=== PATIENT | male | born 1975 | race Caucasian/White ===

== ENCOUNTER → 2016-08-18 | Outpatient (CLI) | payer OTHER ==
--- NOTE | 2016-08-18 13:05 | DI ---
MRI LUMBAR SPINE SCAN WITHOUT IV CONTRAST, 08/18/2016 10:05 AM: Clinical History: Acute bilateral low back pain with left sciatica. Previous Exam: 05/07/2015. Technique: Sagittal and axial T2 weighted; sagittal T1 weighted and T2 STIR; and axial PD. The vertebral bodies are of normal height and size. Since the previous exam, the patient has had a le ft L4 hemilaminectomy with apparent placement of a metallic implant between the spinous processes of L4 and L5. There are considerable artifacts generated by this metallic density. The cord terminates a t T12 and the conus medullaris is normal. The disc spaces from T10-11 through T12-L1 are normal. L1-2 has a mild circumferentially bulging but not herniated disc without canal or neural foraminal stenos is. L2-3 and L3-4 disc spaces are normal. L4-5 has considerable artifacts visible within the canal an d it is difficult to determine if there has been a recurrent disc herniation. On some sequences, the artifacts are actually visible within the canal and the possibility of the presence of small metallic fragments either contiguous or within the canal cannot be excluded. There is no canal or neural fora noam stenosis at this level. L5-S1 has an anterior extradural hypointense structure just to the left of midline that is consistent with an extruded disc from the L5-S1 level. This material potentially could cause impingement on the left S1 nerve root before it enters into the left lateral recess of S1 . There is no canal or neural foraminal stenosis. Readin. The patient is status post left L4 hemilaminectomy with placement of metallic hardware between th e spinous processes of L4 and L5. There is extensive artifact generated by the metallic hardware so t hat evaluation of the canal is suboptimal. There is no canal or neural foraminal stenosis, but evalua tion for recurrent disc herniation or even scar tissue formation is not possible. A postcontrast MRI scan may be helpful for delineation of scar tissue although the likelihood of a successful study is m arkedly decreased because of the metallic artifacts. 2. There is an anterior left-sided extradural defect consistent with migration of disc material infe riorly from L5-S1 silhouetted potentially can produce impingement of the left S1 nerve root before it enters into the left lateral recess of S1. Evaluation of both of these levels can be performed with a CT myelogram if the patient's symptoms do not improve. 3. There is a bulging but not herniated disc without canal or neural foraminal stenosis at L1-2. 4. The disc spaces from T10-11 through T12-L1 and at L2-3 and L3-4 are normal.
== END ==
LOC: MRI 09:58
PROVIDERS: ATTEND Physician Assistant
DX: M54.42 Lumbago with sciatica, left side (principal); M47.816 Spondylosis without myelopathy or radiculopathy, lumbar region
CPT/HCPCS: 72148

== ENCOUNTER → 2016-08-25 | Outpatient (CLI) | payer OTHER ==
--- NOTE | 2016-08-27 09:25 | EKG ---
[address] [place] [address] Measurements Intervals [place] Rate: 74 P: 54 MO: 155 QRS: 17 QRSD: 94 T: 2 QT: 398 QTc: 426 Interpretive Statements SINUS RHYTHM NONSPECIFIC T-WAVE ABNORMALITY but concerning for possible anterolateral ischemia (especially with subtle ST flatteing also inferiorly) No previous ECG available for comparison Electronically Signed On 08-27-16 15:12:03 MST by Chris Coleman MD [email or web address]
== END ==
LOC: EKG 16:50
PROVIDERS: ATTEND Family Medicine
DX: Z01.810 Encounter for preprocedural cardiovascular examination (principal); M54.5 Low back pain; F17.220 Nicotine dependence, chewing tobacco, uncomplicated
CPT/HCPCS: 93005; 93010

== ENCOUNTER → 2016-08-26 | Outpatient (CLI) | payer OTHER ==
[2016-08-26 10:09] LABS: HEMATOCRIT 43.6 % (42.0-52.0); HEMOGLOBIN 14.9 g/dL (14.0-18.0); MEAN CORPUSCULAR HEMOGLOBIN 33.9 PG (27-31); MEAN CORPUSCULAR HGB CONC 34.2 g/dL (33-37); MEAN PLATELET VOLUME 9.3 FL (7.4-12.2); RDW COEFFICIENT OF VARIATION 13.4 % (11.5-14.5); RED BLOOD COUNT 4.39 10^6/uL (4.70-6.10); WHITE BLOOD COUNT 3.06 10^3/uL (4.8-10.8)
[2016-08-26 10:10] LABS: BILIRUBIN,URINE NEGATIVE (NEG); CLARITY,URINE CLEAR (CLEAR); GLUCOSE, URINE (UA) NEGATIVE (NEG); LEUKOCYTE ESTERASE ,URINE NEGATIVE (NEG); NITRATE,URINE NEGATIVE (NEG); OCCULT BLOOD,URINE NEGATIVE (NEG); PROTEIN,URINE NEGATIVE (NEG); UROBILINOGEN,URINE 0.2 mg/dL (0.2)
[2016-08-26 10:16] LABS: BACTERIA,URINE RARE; URINE SAMPLE TYPE CLEAN CATCH URINE; WBC,URINE 0-3
[2016-08-26 10:30] LABS: PROTHROMBIN TIME 10.7 secs (9.7-11.4)
[2016-08-26 11:11] LABS: BLOOD UREA NITROGEN 12 mg/dL (7-22); BUN/CREATININE RATIO 17.14 (6-20); CHLORIDE 98 meq/L (98-112); CREATININE 0.7 mg/dL (0.70-1.50); EST GLOMERULAR FILTRATION > 60 (>60 ml/min/1.73m(2)); GLUCOSE 86 mg/dL (78-110); POTASSIUM 4.2 meq/L (3.8-5.2); SODIUM 138 meq/L (135-145)
--- NOTE | 2016-08-26 12:05 | DI ---
PA /LATERAL CHEST X-RAY, 08/26/2016 9:56 AM : Clinical History: Tobacco use. Preoperative clearance exam. Previous Exam: None at this facility. There is no acute soft tissue or bony abnormality. Heart size is normal. Lungs are clear. Mediastinal structures are normal. There are no pulmonary nodules. Reading: Normal chest x-ray.
== END ==
LOC: MOB RAD 08:39
PROVIDERS: ATTEND Family Medicine
DX: Z01.812 Encounter for preprocedural laboratory examination (principal); Z01.818 Encounter for other preprocedural examination; M54.5 Low back pain; F17.220 Nicotine dependence, chewing tobacco, uncomplicated
CPT/HCPCS: 36415; 71020; 80048; 81001; 85027; 85610

== ENCOUNTER → 2016-10-08 | Outpatient (CLI) | payer OTHER ==
[2016-10-08 15:14] LABS: HEMATOCRIT 44.7 % (42.0-52.0); HEMOGLOBIN 14.6 g/dL (14.0-18.0); MEAN CORPUSCULAR HEMOGLOBIN 32.9 PG (27-31); MEAN CORPUSCULAR HGB CONC 32.7 g/dL (33-37); MEAN PLATELET VOLUME 9.4 FL (7.4-12.2); RED BLOOD COUNT 4.44 10^6/uL (4.70-6.10)
== END ==
LOC: LAB 15:01
PROVIDERS: ATTEND Neurological Surgery
DX: R22.42 Localized swelling, mass and lump, left lower limb (principal); Z48.811 Encounter for surgical aftercare following surgery on the nervous system
CPT/HCPCS: 36415; 85027; 85652; 86140

== ENCOUNTER 2016-10-22 12:08 | Emergency (ER) | payer OTHER ==
--- NOTE | 2016-10-22 12:19 | PDOC ---
Gen Adult / Medical Screen HPI - General Chief Complaint: Clear for Confinement/DUI Draw Stated Complaint: medical clearance Date Seen by Provider: 10/22/16 Time Seen by Provider: 12:14 Source: POSITIVE: Patient, Police Exam Limitations: POSITIVE: No limitations Nurse's Notes Reviewed & Considered: Yes - Indicators Temperature Between 95 and 101 Degrees: Yes Respirations Between 12 and 20: Yes Blood Pressure Between 100-165 (sys) and 60-100 (barrett): Yes Pulse Range Between 60-105 (100 for age > 60 years): Yes Severe Pain (Greater than 5/10 Reported): Yes (chronic lower back pain radiating to his left leg) Chest or Abdominal Pain: No Inability to Walk: No Pt Reports Active High Risk Cond. (TB/Hepatitis/HIV/Chemo): No Abnormal Mental Status: No - History of Present Illness Initial Comments: This 41-year-old male is brought in by the Police Department for clearance for correction. 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 He admitted to alcohol use today and blew a 0.16, in addition he has been taking hydrocodone for his back pain. Presently he is wearing a back brace. He is very cooperative. He denies other symptoms. Body Location Affected: REPORTS: Back Timing: REPORTS: Constant Duration: Unknown Similar Symptoms Previously: Yes Recent Care Received: REPORTS: Denies Any Prior Injuries Related to Current Complaint?: No - Patient Home Medications Home Medications: Home Medications Gabapentin [Neurontin] 600 mg PO TID #90 cap 08/19/16 Oxycodone HCl 1 tab PO Q4-6H #60 tab 09/15/16 Cyclobenzaprine HCl 10 mg PO TID #30 tab 09/17/16 - Patient Allergies Allergies/Adverse Reactions: Allergies Allergy/AdvReac Type Severity Reaction Status Date / Time No Known Drug Allergies Allergy NOT Verified 10/22/16 12:14 APPLICABLE ROS - Limitations ROS Limitations: Intoxication Constitution: REPORTS: Denies Symptoms Cardiovascular: REPORTS: Denies Cardiac Symptoms Respiratory: REPORTS: Denies Resp Symptoms Neurological: REPORTS: Difficulty Walking Gastrointestinal: REPORTS: Denies GI Symptoms Endocrine: REPORTS: Denies Symptoms Musculoskeletal: REPORTS: Back Pain Genitourinary: REPORTS: Denies Symptoms Eyes: REPORTS: Denies Symptoms ENT: REPORTS: Denies Symptoms Skin: REPORTS: Denies Skin Symptoms Lympathic: REPORTS: Denies Lympathic Symptoms Immunologic: POSITIVE: Denies Symptoms Psychiatric: POSITIVE: Denies Psych Symptoms Gen Adult/Medical Screen Exam - General Appearance General Appearance: POSITIVE: Alert, Cooperative, No Acute Distress, No Evidence of Trauma - HEENT HEENT: POSITIVE: Head Inspection Nml, Eyes Inspection Nml, Ears Inspection Nml, Nose Inspection Nml, Oral/Dental Inspect. Nml, Pharynx Inspect. Nml, PERRL, EOMI , Other (Horizontal Nystagmus present) - Pupils Pupil Size: 4 mm: Bilateral - Neck Neck: POSITIVE: Normal Inspection, Thyroid Normal - Respiratory Respiratory: POSITIVE: No Respiratory Distress, Breath Sounds Normal, Chest Non- Tender - Cardiovascular Cardiovascular: POSITIVE: Regular Rate & Rhythm, No Murmur, No Gallop, PMI Normal - Abdomen Abdomen: Soft: (All Quadrants), Normal Bowel Sounds: (All Quadrants), Denies Tenderness: (All Quadrants) - Back Back: POSITIVE: Lumbosacral Tenderness - Neurological / Psychological Mental Status: POSITIVE: Other (Intoxicated affect) Orientation: POSITIVE: Oriented x 3 - Skin Skin: POSITIVE: Normal Color, Warm, Dry, No Rash - Extremities Extremity: Non-Tender: (All Extremities), Normal ROM: (All Extremities), Normal Inspection: (All Extremities) Gen Adlt/Medical Scrn Progress - Patient's Progress Pain Medication Addressed: POSITIVE: Not Applicable Status: POSITIVE: Unchanged MDM / ED Course: Patient was examined here in the emergency department. He was discharged to the custody of the police after examination. Assessment: #1 acute alcohol intoxication, #2 back pain, #3 opioid use for #2. - Consult Counseled: POSITIVE: Patient, RE: DX Patient Care Time - Estimated PCT Patient Care Time (In Minutes): 10 Vital Signs - VS Reviewed Vital Signs Reviewed: Yes Discharge Clinical Impression: Alcohol intoxication, Alcohol abuse Discharge Disposition: Discharged to Custody of Law Enforcement Condition: Fair Date Decision to Transfer to Another Facility: 10/22/16 Time Decision to Transfer to Another Facility: 12:21
[2016-10-22 13:31] VITALS: RESP 18; TEMP 97.7
== END 2016-10-22 12:50 ==
LOC: ER 12:08
DX: F10.129 Alcohol abuse with intoxication, unspecified (principal)
CPT/HCPCS: 99282

== ENCOUNTER → 2016-10-29 | Outpatient (CLI) | payer OTHER ==
--- NOTE | 2016-10-30 10:11 | DI ---
LUMBAR SPINE SERIES, 10/29/2016 10:30 AM: Clinical History: Low back pain. Status post fusion. Previous Exam: 05/05/2015. Upright AP and lateral and upright lateral flexion and extension views are submitted. The vertebral b odies are of normal height and size. There is mild L3-4 and moderate L1-2, L2-3, and L5-S1 disc space narrowing. Since the previous exam, the patient has undergone an L4 laminectomy with anterior and po sterior bony fusions at L4-5. Posterior fusions are accomplished with bone grafts as well as metallic struts transfixed with pedicle screws between L4 and L5. The bone graft cage shows a lucency surroun ding its margins both on the AP and lateral projections suggesting the fusion is not solid. There is a lucency surrounding the right-sided metallic strut on the lateral projection suggesting this slurry tank tender ior fusion fusion is not solid. No instability is noted with flexion and extension maneuvers, but the patient appears to be flexing at the level of the hips rather than at the level of the low back tod on. The remaining pedicles and posterior elements are unremarkable. Both SI joints are normal. Readin. Status post L4 laminectomy with anterior and posterior fusions at L4-5. There are lucencies surro unding the bone graft cage as well as the right-sided metallic strut inferiorly suggesting the fusion s are not solid. No instability is noted with flexion and extension. 2. The remaining disc spaces show mild to moderate disc space narrowing.
== END ==
LOC: RAD 11:12
PROVIDERS: ATTEND Neurological Surgery
DX: Z48.811 Encounter for surgical aftercare following surgery on the nervous system (principal); Z98.1 Arthrodesis status
CPT/HCPCS: 72110

== ENCOUNTER → 2017-01-07 | Outpatient (CLI) | payer OTHER ==
--- NOTE | 2017-01-07 12:03 | DI ---
XR L-SPINE 2-3 VW,01/07/2017 10:03 AM: Clinical History: Evaluate effusion. Previous Exam: 10/29/16 Findings: AP and lateral views of the lumbar spine are obtained, and demonstrate postsurgical changes consisten t with transpedicular fixation of L4/ 5. There is also transverse and interbody fusion. Alignment is stable. No fractures are seen. Impression: No significant change from prior.
== END ==
LOC: RAD 09:53
PROVIDERS: ATTEND Neurological Surgery
DX: Z48.811 Encounter for surgical aftercare following surgery on the nervous system (principal); Z98.1 Arthrodesis status
CPT/HCPCS: 72100